=== PATIENT | male | born 1990 | race Caucasian/White ===

== ENCOUNTER 2018-12-16 05:05 | Emergency (ER) | payer SELFPAY ==
[2018-12-16 05:14] VITALS: BP 134/76; PULSE 76; RESP 18; TEMP 36.7; O2SAT 98; BMI 26.6
--- NOTE | 2018-12-16 05:18 | ED.SKABFB ---
HPI - Skin/Abscess/Foreign Bdy General Chief complaint: Skin/Abscess/Foreign Body Stated complaint: Spider bite Time Seen by Provider: 12/16/18 05:07 Source: patient Mode of arrival: ambulatory Limitations: no limitations History of Present Illness HPI narrative: Patient is a 28-year-old otherwise healthy male here for evaluation of a spot on his left forearm. Patient states that he was camping and thought he got bit by a spider. Was a area of redness. He states that he has been expressing purulent material from that area over the past couple days. No fevers. No joint pain. States he did not specifically see a spider bite him. Has never had anything like this in the past. Related Data Previous Rx's Medication Instructions Recorded sulfamethoxazole-trimethoprim 1 tab PO BID 5 Days #10 tab 12/16/18 [Bactrim DS] Review of Systems Musculoskeletal Denies tingling Comments: No joint pain Integumentary/Breasts Comments: Redness with drainage left forearm Neurologic Denies tingling PFSH Medical History Healthy adult (Acute) Social History Smoking Status: Never smoker Social History Smoking Status: Never smoker Exam Initial Vital Signs Initial Vital Signs: Vital Signs Temperature 98.1 F 12/16/18 05:14 Pulse Rate 76 12/16/18 05:14 Respiratory Rate 18 12/16/18 05:14 Blood Pressure 134/76 12/16/18 05:14 Pulse Oximetry 98 12/16/18 05:14 Const General: cooperative, comfortable, well developed, well groomed and No acute distress Skin Other: Patient with a 1/2 cm area of purulence drainage with a total of a 2 cm surrounding area of redness and induration Neuro General: alert and awake Cognition: normal cognition Speech: speech normal Extrem Other: No left wrist or left elbow pain Course Vital Signs - 8 hr 12/16/18 05:14 Temperature 98.1 F Pulse Rate 76 Respiratory Rate 18 Blood Pressure 134/76 Pulse Oximetry 98 MDM - Skin/Abscess/Foreign Bdy MDM Narrative Medical decision making narrative: The area is draining. Bedside ultrasound shows no underlying abscess. I suspect that it has been spontaneously draining. Because of the surrounding cellulitis will start him on antibiotics. The area was outlined with a skin marker. He was given care instructions and return precautions. He expressed understanding and agreement with plan. Discharge Plan Departure Patient Disposition: Home Clinical Impression: Cellulitis Qualifiers: Site of cellulitis: extremity Site of cellulitis of extremity: upper extremity Laterality: left Qualified Code(s): L03.114 - Cellulitis of left upper limb Instructions: DI for Cellulitis -- Adult Activity Restrictions/Additional Instructions: You can shower like normal. Use soap and water like normal. Take the antibiotics as directed. Contact your primary doctor for follow-up. Return to the emergency department for any new or worsening symptoms Prescriptions: New sulfamethoxazole-trimethoprim [Bactrim DS] 800-160 mg tablet 1 tab PO BID 5 Days Qty: 10 RF: 0
--- NOTE | 2018-12-16 06:10 | PC.NURSE ---
PT states thinks was bit by spider on his left forearm while camping, however he did not see a spider. Patient states that he was camping and thought he got bit by a spider. Reports purulent drainage, redness and swelling to area for for past couple of days. Denies fevers.
== END 2018-12-16 05:40 | disposition home or self-care (01) ==
PROVIDERS: Emergency Provider Emergency Medicine
DX: L03.114 Cellulitis of left upper limb (principal)
CPT/HCPCS: 99282; 99283

== ENCOUNTER 2018-12-16 10:24 | Emergency (ER) | payer SELFPAY ==
[2018-12-16 10:35] VITALS: BP 134/82; PULSE 73; RESP 18; TEMP 36.7; O2SAT 93
--- NOTE | 2018-12-16 12:20 | ED_ITS ---
HPI - Skin/Abscess/Foreign Bdy <MIRELA Cross - Last Filed: 12/16/18 13:33> General Chief complaint: Skin/Abscess/Foreign Body Stated complaint: Recheck,spider bite Time Seen by Provider: 12/16/18 11:45 Source: patient Mode of arrival: ambulatory Limitations: no limitations History of Present Illness HPI narrative: 28-year-old healthy male presents to the emergency department for increased redness to boil on left arm after being seen this morning for the same thing. Patient states he did not fill his antibiotics and was told to come into the ER by his boss. States redness has slightly spread outside of the borders that were drawn by a pen. He drained a small amount of pus from the wound this morning after being seen. Denies fevers, chills, vomiting, nausea, diarrhea, or limited range of motion of arm. MD complaint: abscess/boil Onset (ago): hour(s) Location: LUE Related Data Previous Rx's Medication Instructions Recorded sulfamethoxazole-trimethoprim 1 tab PO BID 5 Days #10 tab 12/16/18 [Bactrim DS] Allergies Allergy/AdvReac Type Severity Reaction Status Date / Time No Known Drug Allergies Allergy Verified 12/16/18 10:41 Review of Systems <MIRELA Cross - Last Filed: 12/16/18 13:33> Review of Systems REVIEW OF SYSTEMS: GENERAL: Denies fever or chills. HENT: No head trauma, hearing loss or sore throat. EYES: No loss of vision, double vision, eye pain, or irritation. CARDIOVASCULAR: No chest pain or syncope. RESPIRATORY: No shortness of breath or cough. GASTROINTESTINAL: No nausea, vomiting, diarrhea, or constipation. GENITOURINARY: No flank pain or dysuria. MUSCULOSKELETAL: No weakness, or deformities. INTEGUMENTARY: See HPI. No rash or pruritus. NEURO: No numbness, tingling, memory loss, or confusion. PSYCH: No behavior or mood changes. PFSH <MIRELA Cross - Last Filed: 12/16/18 13:33> Medical History Healthy adult (Acute) Social History Smoking Status: Never smoker Social History Smoking Status: Never smoker Exam <MIRELA Cross - Last Filed: 12/16/18 13:33> Initial Vital Signs Initial Vital Signs: Vital Signs Temperature 98.0 F 12/16/18 10:35 Pulse Rate 73 12/16/18 10:35 Respiratory Rate 18 12/16/18 10:35 Blood Pressure 134/82 12/16/18 10:35 Pulse Oximetry 93 12/16/18 10:35 PHYSICAL EXAMINATION: GENERAL: Alert, and cooperative Answers questions promptly and appropriately. Vital signs noted. HENT: Normocephalic, atraumatic. Oral mucosa is pink and moist. EYES: conjunctiva pink, sclera white, no periorbital swelling. CARDIOVASCULAR: S1 and S2 sounds normal. Regular rate and rhythm, no murmurs, clicks, or bruits. No pedal edema. RESPIRATORY: Normal respiratory rate, trachea midline, airway patent. No stridor, nasal flaring or accessory muscle use. Lungs are clear in all nielsen without wheeze, rhonchi, or crackles. MUSCULOSKELETAL: Normal gait and coordination. Equal tone and mass bilaterally. No spinal tenderness or deformities. EXTREMITIES: CMS intact. Full range of motion and 5/5 strength to upper and lower extremities. Equal radial pulses bilaterally. SKIN: Warm, dry, soft, appropriate color for ethnicity. 2 cm will on inner side of left forearm with a small dry scab. Minute pus expressed manually. 4 cm of erythema and mild swelling surrounding the wound, slight increase of warmth. No swelling in wrist, fingers, or elbows. No signs of phlebitis noted. NEURO: Alert and Oriented X 3. Good coordination. No ataxia, or sensory deficits, or cognitive issues. PSYCH: Appropriate affect and mood. <Citlalli Willams MD - Last Filed: 12/16/18 19:07> Initial Vital Signs Initial Vital Signs: Vital Signs Temperature 98.0 F 12/16/18 10:35 Pulse Rate 73 12/16/18 10:35 Respiratory Rate 18 12/16/18 10:35 Blood Pressure 134/82 12/16/18 10:35 Pulse Oximetry 93 12/16/18 10:35 Course <MIRELA Cross - Last Filed: 12/16/18 13:33> Course Narrative: Discussed the importance of taking antibiotics with patient. Manually expressed and the new amount pus from 1. Consultations Consultation #1: Case discussed with Dr. Willams who agrees with plan of care. Vital Signs - 8 hr 12/16/18 10:35 Temperature 98.0 F Pulse Rate 73 Respiratory Rate 18 Blood Pressure 134/82 Pulse Oximetry 93 <Citlalli Willams MD - Last Filed: 12/16/18 19:07> Vital Signs - 8 hr 12/16/18 10:35 Temperature 98.0 F Pulse Rate 73 Respiratory Rate 18 Blood Pressure 134/82 Pulse Oximetry 93 MDM - Skin/Abscess/Foreign Bdy <MIRELA Cross - Last Filed: 12/16/18 13:33> Medical Records Attestation: I reviewed the patient's medical records. Lab Data Attestation: I reviewed the patient's lab results. MDM Narrative Medical decision making narrative: I have little concern that the infection needs IV antibiotics at this point due to only a slight increase in redness and swelling, and very minimal pus was expressed in clinic. Additionally the patient has not started taking his prescribed antibiotics that were given to him this coming. Patient agrees to sweet pickled fruit maker antibiotics immediately after discharge and refuses a dose in the ED at this time. Return precautions given and a new line was drawn around patient's wound. He was instructed to keep the wound covered and to not apply Neosporin as this could prevent drainage from the wound. Discharge Plan Departure Patient Disposition: Home Clinical Impression: Cellulitis Discharge Date/Time: 12/16/18 12:15 Interventions: ED Discharge Assessment Last Done: 12/16/18 12:14 Instructions: DI for Cellulitis -- Adult, DI for Skin Abscess Activity Restrictions/Additional Instructions: As discussed, the redness and swelling around your wound is likely caused by infection. Please take the antibiotics that were prescribed earlier this morning, they will take a day or two to work. Keep the wound covered. If the redness and swelling increased dramatically while taking antibiotics please return as he may need antibiotics. Follow up with a primary care provider in 1- 2 days if needed. Prescriptions: No Action sulfamethoxazole-trimethoprim [Bactrim DS] 800-160 mg tablet 1 tab PO BID 5 Days Qty: 10 RF: 0
== END 2018-12-16 12:15 | disposition home or self-care (01) ==
PROVIDERS: Emergency Provider Nurse Practitioner
DX: L03.114 Cellulitis of left upper limb (principal)
CPT/HCPCS: 99282

== ENCOUNTER 2018-12-17 13:30 | Emergency (ER) | payer SELFPAY ==
[2018-12-17 13:42] VITALS: BP 134/79; PULSE 77; RESP 14; TEMP 36.6; O2SAT 97; BMI 27.3
--- NOTE | 2018-12-17 15:48 | ED.SKABFB ---
HPI - Skin/Abscess/Foreign Bdy <MIRELA Cross - Last Filed: 12/17/18 23:23> General Chief complaint: Skin/Abscess/Foreign Body Stated complaint: SPREADING OF SPIDER BITE Time Seen by Provider: 12/17/18 15:01 Source: patient Mode of arrival: ambulatory Limitations: no limitations History of Present Illness HPI narrative: A 28-year-old male returns to the emergency department for the 3rd time in the past 2 days for a left arm abscess after being bitten by a bug. States that the redness has decreased approximately but has slightly extended laterally. States that there is minimal amount of drainage on his bandage. Has been changing bandages daily in using a small amount of peroxide on the wound. Patient has taken 3 doses of Bactrim at this time. Denies fevers, chills, nausea, vomiting, chest pain, shortness of breath, increased pain in arm, decreased sensation, tingling, numbness or adverse reaction to the antibiotic. Patient also states that he feels like it is getting better but he was told to come to the ER by his friends. MD complaint: abscess/boil Onset (ago): day(s) Tetanus up to date: yes Location: LUE Severity: moderate Related Data Previous Rx's Medication Instructions Recorded sulfamethoxazole-trimethoprim 1 tab PO BID 5 Days #10 tab 12/16/18 [Bactrim DS] sulfamethoxazole-trimethoprim 1 tab PO BID #4 tab 12/17/18 [Bactrim DS] Allergies Allergy/AdvReac Type Severity Reaction Status Date / Time No Known Drug Allergies Allergy Verified 12/17/18 13:42 Review of Systems <MIRELA Cross - Last Filed: 12/17/18 23:23> Review of Systems REVIEW OF SYSTEMS: GENERAL: Denies fever or chills. CARDIOVASCULAR: No chest pain or syncope. RESPIRATORY: No shortness of breath or cough. GASTROINTESTINAL: No nausea, vomiting, diarrhea, or constipation. GENITOURINARY: No flank pain or dysuria. MUSCULOSKELETAL: No pain, weakness, or deformities. INTEGUMENTARY: See HPI. NEURO: No numbness, tingling, memory loss, or confusion. PSYCH: No behavior or mood changes. PFSH <MIRELA Cross - Last Filed: 12/17/18 23:23> Medical History Healthy adult (Acute) Social History Smoking Status: Never smoker Social History Smoking Status: Never smoker Exam <MIRELA Cross - Last Filed: 12/17/18 23:23> Initial Vital Signs Initial Vital Signs: Vital Signs Temperature 97.8 F 12/17/18 13:42 Pulse Rate 77 12/17/18 13:42 Respiratory Rate 14 12/17/18 13:42 Blood Pressure 134/79 12/17/18 13:42 Pulse Oximetry 97 12/17/18 13:42 PHYSICAL EXAMINATION: GENERAL: Well groomed, alert, and cooperative Answers questions promptly and appropriately. Vital signs noted. HENT: Normocephalic, atraumatic. Facial features symmetrical. MUSCULOSKELETAL: Normal gait and coordination. Equal tone and mass bilaterally. No spinal tenderness or deformities. EXTREMITIES: CMS intact. SKIN: Small 1 cm scab noted to the left arm with surrounding erythema that has decreased in severity of color, area, and amount of swelling since yesterday when seen by me in the emergency department. No drainage was seen or expressed from wound. Sensation intact, radial pulses strong and equal bilaterally. Patient has full range of motion of upper forearms. NEURO: Alert and Oriented X 3. Good coordination. No ataxia, or sensory deficits, or cognitive issues. PSYCH: Appropriate affect and mood. <Juliet Giang DO - Last Filed: 12/18/18 17:59> Initial Vital Signs Initial Vital Signs: Vital Signs Temperature 97.8 F 12/17/18 13:42 Pulse Rate 77 12/17/18 13:42 Respiratory Rate 14 12/17/18 13:42 Blood Pressure 134/79 12/17/18 13:42 Pulse Oximetry 97 12/17/18 13:42 Course <MIRELA Cross - Last Filed: 12/17/18 23:23> Consultations Consultation #1: Patient staffed with Dr. Giang whom agrees with plan of care. Vital Signs - 8 hr 12/17/18 16:12 Pulse Rate 74 Respiratory Rate 16 Blood Pressure 137/83 Pulse Oximetry 96 <DO Vitaliy Doll Last Filed: 12/18/18 17:59> Vital Signs - 8 hr 12/17/18 16:12 Pulse Rate 74 Respiratory Rate 16 Blood Pressure 137/83 Pulse Oximetry 96 [facility] - Skin/Abscess/Foreign Bdy <Stephanie MillerMIRELA - Last Filed: 12/17/18 23:23> Medical Records Attestation: I reviewed the patient's medical records. Lab Data Attestation: I reviewed the patient's lab results. MDM Narrative Medical decision making narrative: I suspect that the patient's wound is actually resolving due to decreased in severity of erythema and swelling. While a small amount of redness has exceeded the initial lines drawn around the wound I believe this is an inflammatory reaction from the beginning of antibiotics as he has only taken 3 doses. Patient continues to to return to the emergency department as friends have been instructed patient to the that. I do not feel that patient needs IV antibiotics at this time as redness and swelling is slowly resolving and he has not developed further systemic symptoms such as fever, tachycardia or chills. I extended his regimen of Bactrim to infection completely resolved. Discharge Plan Departure Patient Disposition: Home Clinical Impression: Cellulitis Qualifiers: Site of cellulitis: extremity Site of cellulitis of extremity: upper extremity Laterality: left Qualified Code(s): L03.114 - Cellulitis of left upper limb Discharge Date/Time: 12/17/18 16:14 Interventions: ED Discharge Assessment Last Done: 12/17/18 16:12 Instructions: DI for Cellulitis -- Adult Activity Restrictions/Additional Instructions: Thank you for entrusting me with your care today. As discussed, he the redness of her wound is decreasing and there is less purulent discharge from the wound which appears that the antibiotics are working. It will take a few more days for things resolve more rapidly. I prescribed do a few more days of Bactrim so you can have a longer course of antibiotics to make sure that the infection is completely gone. Please make an appointment next week to see her primary care provider for recheck. Return to the emergency department if he develops fever, chills, chest pain, shortness of breath, or significant increase in redness and swelling. Prescriptions: New sulfamethoxazole-trimethoprim [Bactrim DS] 800-160 mg tablet 1 tab PO BID Qty: 4 RF: 0 No Action sulfamethoxazole-trimethoprim [Bactrim DS] 800-160 mg tablet 1 tab PO BID 5 Days Qty: 10 RF: 0 <Juliet Giang DO - Last Filed: 12/18/18 17:59> Cosign ED Attending Cosignature Attestation: I was immediately available in the department for consultation, case was discussed. Stephanie actually saw the patient on prior visit states improvement of the site. This documentation has been reviewed and I agree with assessment and plan. Supervised by Juliet Giang DO
--- NOTE | 2018-12-17 15:51 | ED_ITS ---
HPI - Skin/Abscess/Foreign Bdy <MIRELA Cross - Last Filed: 12/17/18 23:23> General Chief complaint: Skin/Abscess/Foreign Body Stated complaint: SPREADING OF SPIDER BITE Time Seen by Provider: 12/17/18 15:01 Source: patient Mode of arrival: ambulatory Limitations: no limitations History of Present Illness HPI narrative: A 28-year-old male returns to the emergency department for the 3rd time in the past 2 days for a left arm abscess after being bitten by a bug. States that the redness has decreased approximately but has slightly extended laterally. States that there is minimal amount of drainage on his bandage. Has been changing bandages daily in using a small amount of peroxide on the wound. Patient has taken 3 doses of Bactrim at this time. Denies fevers, chills, nause a, vomiting, chest pain, shortness of breath, increased pain in arm, decreased sensation, tingling, numbness or adverse reaction to the antibiotic. Patient also states that he feels like it is getting better but he was told to come to the ER by his friends. MD complaint: abscess/boil Onset (ago): day(s) Tetanus up to date: yes Location: LUE Severity: moderate Related Data Previous Rx's Medication Instructions Recorded sulfamethoxazole-trimethoprim 1 tab PO BID 5 Days #10 tab 12/16/18 [Bactrim DS] sulfamethoxazole-trimethoprim 1 tab PO BID #4 tab 12/17/18 [Bactrim DS] Allergies Allergy/AdvReac Type Severity Reaction Status Date / Time No Known Drug Allergies Allergy Verified 12/17/18 13:42 Review of Systems <MIRELA Cross - Last Filed: 12/17/18 23:23> Review of Systems REVIEW OF SYSTEMS: GENERAL: Denies fever or chills. CARDIOVASCULAR: No chest pain or syncope. RESPIRATORY: No shortness of breath or cough. GASTROINTESTINAL: No nausea, vomiting, diarrhea, or constipation. GENITOURINARY: No flank pain or dysuria. MUSCULOSKELETAL: No pain, weakness, or deformities. INTEGUMENTARY: See HPI. NEURO: No numbness, tingling, memory loss, or confusion. PSYCH: No behavior or mood changes. PFSH <MIRELA Cross - Last Filed: 12/17/18 23:23> Medical History Healthy adult (Acute) Social History Smoking Status: Never smoker Social History Smoking Status: Never smoker Exam <MIRELA Cross - Last Filed: 12/17/18 23:23> Initial Vital Signs Initial Vital Signs: Vital Signs Temperature 97.8 F 12/17/18 13:42 Pulse Rate 77 12/17/18 13:42 Respiratory Rate 14 12/17/18 13:42 Blood Pressure 134/79 12/17/18 13:42 Pulse Oximetry 97 12/17/18 13:42 PHYSICAL EXAMINATION: GENERAL: Well groomed, alert, and cooperative Answers questions promptly and appropriately. Vital signs noted. HENT: Normocephalic, atraumatic. Facial features symmetrical. MUSCULOSKELETAL: Normal gait and coordination. Equal tone and mass bilaterally. No spinal tenderness or deformities. EXTREMITIES: CMS intact. SKIN: Small 1 cm scab noted to the left arm with surrounding erythema that has decreased in severity of color, area, and amount of swelling since yesterday when seen by me in the emergency department. No drainage was seen or expressed from wound. Sensation intact, radial pulses strong and equal bilaterally. Patient has full range of motion of upper forearms. NEURO: Alert and Oriented X 3. Good coordination. No ataxia, or sensory deficits, or cognitive issues. PSYCH: Appropriate affect and mood. <Juliet Giang DO - Last Filed: 12/18/18 17:59> Initial Vital Signs Initial Vital Signs: Vital Signs Temperature 97.8 F 12/17/18 13:42 Pulse Rate 77 12/17/18 13:42 Respiratory Rate 14 12/17/18 13:42 Blood Pressure 134/79 12/17/18 13:42 Pulse Oximetry 97 12/17/18 13:42 Course <MIRELA Cross - Last Filed: 12/17/18 23:23> Consultations Consultation #1: Patient staffed with Dr. Giang whom agrees with plan of care. Vital Signs - 8 hr 12/17/18 16:12 Pulse Rate 74 Respiratory Rate 16 Blood Pressure 137/83 Pulse Oximetry 96 <Juliet Giang DO - Last Filed: 12/18/18 17:59> Vital Signs - 8 hr 12/17/18 16:12 Pulse Rate 74 Respiratory Rate 16 Blood Pressure 137/83 Pulse Oximetry 96 [facility] - Skin/Abscess/Foreign Bdy <Stephanie MillerMIRELA - Last Filed: 12/17/18 23:23> Medical Records Attestation: I reviewed the patient's medical records. Lab Data Attestation: I reviewed the patient's lab results. [facility] Narrative Medical decision making narrative: I suspect that the patient's wound is actually resolving due to decreased in severity of erythema and swelling. While a small amount of redness has exceeded the initial lines drawn around the wound I believe this is an inflammatory reaction from the beginning of antibiotics as he has only taken 3 doses. Patient continues to to return to the emergency department as friends have been instructed patient to the that. I do not feel that patient needs IV antibiotics at this time as redness and swelling is slowly resolving and he has not developed further systemic symptoms such as fever, tachycardia or chills. I extended his regimen of Bactrim to infection completely resolved. Discharge Plan Departure Patient Disposition: Home Clinical Impression: Cellulitis Qualifiers: Site of cellulitis: extremity Site of cellulitis of extremity: upper extremity Laterality: left Qualified Code(s): L03.114 - Cellulitis of left upper limb Discharge Date/Time: 12/17/18 16:14 Interventions: ED Discharge Assessment Last Done: 12/17/18 16:12 Instructions: DI for Cellulitis -- Adult Activity Restrictions/Additional Instructions: Thank you for entrusting me with your care today. As discussed, he the redness of her wound is decreasing and there is less purulent discharge from the wound which appears that the antibiotics are working. It will take a few more days for things resolve more rapidly. I prescribed do a few more days of Bactrim so you can have a longer course of antibiotics to make sure that the infection is completely gone. Please make an appointment next week to see her primary care provider for recheck. Return to the emergency department if he develops fever, chills, chest pain, shortness of breath, or significant increase in redness and swelling. Prescriptions: New sulfamethoxazole-trimethoprim [Bactrim DS] 800-160 mg tablet 1 tab PO BID Qty: 4 RF: 0 No Action sulfamethoxazole-trimethoprim [Bactrim DS] 800-160 mg tablet 1 tab PO BID 5 Days Qty: 10 RF: 0 <Juliet Giang DO - Last Filed: 12/18/18 17:59> Cosign ED Attending Cosignature Attestation: I was immediately available in the department for consultation, case was dis cussed. Stephanie actually saw the patient on prior visit states improvement of the site. This documentation has been reviewed and I agree with assessment and plan. Supervised by Juliet Giang DO
[2018-12-17 16:12] VITALS: BP 137/83; PULSE 74; RESP 16; O2SAT 96
== END 2018-12-17 16:14 | disposition home or self-care (01) ==
PROVIDERS: Emergency Provider Nurse Practitioner
DX: L03.114 Cellulitis of left upper limb (principal)
CPT/HCPCS: 99282; 99283